=== PATIENT | male | born 1960 | race Caucasian/White ===

== ENCOUNTER 2016-11-21 17:12 | Emergency (ER) | payer SELFPAY ==
[2016-11-21 17:48] LABS: Basophils % (Auto) 0.7 % (0.0-1.8); Eosinophils % (Auto) 2.3 % (0.0-4.3); Hematocrit 48.2 % (35.5-45.6); Hemoglobin 15.5 gm/dl (11.8-15.2); Mean Corpuscular HGB Conc 32 % (32-34); Mean Corpuscular Hemoglobin 29 pg (28-32); Mean Corpuscular Volume 91 fl (84-94); Platelet Count 209 K/mm3 (140-440); Red Blood Count 5.31 M/mm3 (3.65-5.03); Red Cell Distribution Width 14.6 % (13.2-15.2); White Blood Count 10.5 K/mm3 (4.5-11.0)
[2016-11-21 18:08] LABS: Anion Gap 16 mmol/L; BUN/Creatinine Ratio 12.85; Blood Urea Nitrogen 9 mg/dL (9-20); Calcium 9.4 mg/dL (8.4-10.2); Carbon Dioxide 28 mmol/L (22-30); Glucose 94 mg/dL (75-100); Potassium 4.7 mmol/L (3.6-5.0); Sodium 145 mmol/L (137-145)
[2016-11-21] MEDS ORDERED: DUONEB *Not for PRN Use IH ONE (19:31)
[2016-11-21] MEDS ORDERED: TESSALON PERLES PO ONE (19:31)
[2016-11-21] MEDS ORDERED: NACL 0.9% 1000 ML 1,000 ML IV ONE (19:32)
[2016-11-21] MEDS ORDERED: DELTASONE PO ONE (20:45)
[2016-11-21 21:07] VITALS: BP 118/88
--- NOTE | 2016-11-22 01:37 | Emergency Department Report ---
HPI - General Chief Complaint: Dyspnea/Respdistress Time Seen by Provider: 11/21/16 20:05 - HPI HPI: The patient is a 56-year-old male with a history of COPD, who presents for evaluation of dyspnea. The patient reports 1 day of moderate severity dyspnea, constant since onset, exacerbated with smoking or ambulation, and associated with a nonproductive cough. The patient denies fever, trauma to the chest, chest pain, hemoptysis, unilateral leg swelling, recent immobilization, history of DVT or PE, recent cancer, history of familial coagulation disorder. ED Past Medical Hx - Past Medical History Previous Medical History?: Yes Hx COPD: Yes Additional medical history: emphysema, cardiac arrest X 2 - Social History Smoking Status: Former Smoker Substance Use Type: None - Medications Home Medications: Home Medications Medication Instructions Recorded Confirmed Last Taken Type ALBUTEROL Inhaler [ProAir HFA 2 puff IH QID PRN #1 inhalation 11/21/16 Unknown Rx Inhaler] Benzonatate [Tessalon Perles] 100 mg PO Q8HR #14 capsule 11/21/16 Unknown Rx predniSONE [Deltasone] 20 mg PO QDAY #5 tab 11/21/16 Unknown Rx ED Review of Systems ROS: Stated complaint: DIFFICULTY IN BREATHING Other details as noted in HPI Constitutional: denies: fever ENT: denies: throat or neck pain Respiratory: reports cough, shortness of breath Cardiovascular: denies: chest pain Endocrine: denies unexplained weight loss or gain Gastrointestinal: denies: abdominal pain, nausea Genitourinary: denies: dysuria Musculoskeletal: denies: leg swelling Skin: denies: rash Neurological: denies: headache Hematological/Lymphatic: denies: easy bleeding or easy bruising Psych: denies sadness or hopelessness Physical Exam - Physical Exam Vital Signs: Vital Signs 11/21/16 11/21/16 11/21/16 17:23 18:08 18:10 Temperature 98.5 F Pulse Rate 85 Respiratory 20 Rate Blood Pressure 113/85 121/89 O2 Sat by Pulse 96 95 Oximetry 11/21/16 11/21/16 11/21/16 18:31 18:45 18:51 Temperature Pulse Rate 80 Respiratory 14 Rate Blood Pressure 125/82 125/82 129/78 O2 Sat by Pulse 94 92 Oximetry 11/21/16 18:54 Temperature Pulse Rate Respiratory 18 Rate Blood Pressure O2 Sat by Pulse Oximetry Physical Exam: General: well-nourished, well-developed, no acute distress Head: Normocephalic, atraumatic Eyes: normal sclera ENT: Mucous membranes are pale and dry Neck: No neck stiffness, no cervical adenopathy Respiratory: Diminished breath sounds and wheezing present throughout lung carpio bilaterally, no costal retractions, no respiratory distress Cardio: S1 and S2 present, no murmurs, rubs, gallops, capillary refill is delayed Abdomen: Normoactive bowel sounds, soft abdomen, no rigidity, no guarding or rebound tenderness Chest WALL/Back: No tenderness to palpation of the chest wall, no CVA tenderness with percussion Musc: No pitting edema Skin: No rash Neuro: no facial drooping, normal speech Psych: Normal affect ED Course Vital Signs 11/21/16 11/21/16 11/21/16 17:23 18:08 18:10 Temperature 98.5 F Pulse Rate 85 Respiratory 20 Rate Blood Pressure 113/85 121/89 O2 Sat by Pulse 96 95 Oximetry 11/21/16 11/21/16 11/21/16 18:31 18:45 18:51 Temperature Pulse Rate 80 Respiratory 14 Rate Blood Pressure 125/82 125/82 129/78 O2 Sat by Pulse 94 92 Oximetry 11/21/16 18:54 Temperature Pulse Rate Respiratory 18 Rate Blood Pressure O2 Sat by Pulse Oximetry ED Medical Decision Making - Lab Data Result diagrams: 11/21/16 17:37 11/21/16 17:37 - Medical Decision Making The patient was seen and examined by myself. The patient is placed on a alarm security or surveillance monitor and continuous pulse ox. On initial evaluation, the patient was found to be in no distress. Evaluation orders were placed. The patient is given a breathing treatment and prednisone for txt of COPD, and tessalon perles for cough. The patient is given 1 L normal saline fluid bolus for treatment of dehydration. Chest x-ray negative for focal consolidation, pleural effusions, pulmonary congestion, pneumothorax, or other acute cardio pulmonary disease process. Lab results reveal elevated RBC, hemoglobin, and hematocrit, consistent with hemoconcentration and exam findings of dehydration, and otherwise labs were grossly unremarkable. The patient was reevaluated and reported that their symptoms were markedly improved. On reexamination the patient is found to have normal respiratory rate and O2 sat on pulse oximetry, with no costal retractions or diminishment of breath sounds on auscultation. The patient is stable for discharge with outpatient follow-up. The patient is given follow-up and return instructions. The patient expressed understanding and agreed with the plan. The patient is discharged in stable condition. Critical care attestation.: If time is entered above; I have spent that time in minutes in the direct care of this critically ill patient, excluding procedure time. ED Disposition Clinical Impression: Acute exacerbation of chronic obstructive pulmonary disease (COPD), Bronchitis , Dehydration, mild Disposition: DC-01 TO HOME OR SELFCARE Is pt being admited?: No Does the pt Need Aspirin: No Condition: Stable Instructions: Chronic Obstructive Pulmonary Disease (ED), Acute Bronchitis (ED) , Dehydration (ED) Prescriptions: ALBUTEROL Inhaler [ProAir HFA Inhaler] 2 puff IH QID PRN #1 inhalation PRN Reason: Shortness Of Breath Benzonatate [Tessalon Perles] 100 mg PO Q8HR #14 capsule predniSONE [Deltasone] 20 mg PO QDAY #5 tab Referrals: PRIMARY CARE, [Primary Care Provider] - 3-5 Days Time of Disposition: 20:46
--- NOTE | 2016-11-22 08:19 | XRay Report ---
CHEST 2 VIEWS INDICATION: Dyspnea. COMPARISON: None similar at this institution. FINDINGS: PA and lateral chest radiographs demonstrate normal cardiomediastinal silhouette. Hyperexpanded lungs without evidence of CHF. Probable pleural thickening blunting the right lateral costophrenic angle rather than fluid. Few small right upper lung and possible hilar calcifications/granulomas. Demineralized bones with mild to moderate midthoracic spine compression fractures suspected at couple of levels. Mild thoracic dextroscoliosis as well. CONCLUSION: No acute chest process with COPD, old healed granulomatous disease and mid thoracic spine compression deformities suspected, as described. Please correlate. Thank you for the opportunity to participate in this patient's care.
== END 2016-11-21 21:00 | disposition home or self-care (01) ==
LOC: ED 17:12
DX: J44.9 Chronic obstructive pulmonary disease, unspecified (principal); J40 Bronchitis, not specified as acute or chronic; E86.0 Dehydration; Z87.891 Personal history of nicotine dependence
CPT/HCPCS: 36415; 71020; 80048; 84484; 85025; 93005; 93010; 96360; 99284; J7030; J7512